=== PATIENT | male | born 1980 | race Caucasian/White ===

== ENCOUNTER 2021-11-05 03:18 | Outpatient (CLI) | payer OTHER, SELFPAY ==
[2021-11-05] MEDS: Gadoterate meglumine 20 ML VIAL IVP (08:04)
--- NOTE | 2021-11-05 09:00 | DI.MRI_ITS ---
Exam(s) MR IAC BRAIN WO/W EXAM: MR IAC BRAIN WO/W CLINICAL HISTORY: Asymmetric hearing loss,dizziness,tinnitus,r42,h93.19,h91.8x9 TECHNIQUE: MR examination of the brain was performed according to the usual protocol with additiona l multiplanar high-resolution pre and post contrast imaging the posterior fossa. Whole brain axial T 1 weighted imaging was also obtained post contrast. COMPARISON: No exams were available for comparison FINDINGS: The ventricular system is normal in appearance. There is no mass lesion or enhancing lesion in the b rain. No significant intracranial signal abnormality seen. Diffusion-weighted imaging shows no diffusion restriction to suggest cerebral infarction. Susceptibility weighted imaging shows no evidence of intracranial hemorrhage. The orbital and temporal bone structures appear intact. The pituitary appears intact. There is normal flow void in the [id number] vasculature. Imaging of the posterior fossa region shows no abnormality of the cerebellum or teresa. The internal a uditory canals and inner and middle ear structures appear normal. There is no mass lesion or enhanci ng lesion. IMPRESSION: Negative brain MRI with attention to the posterior fossa structures as described above. No mass lesi on or enhancing lesion. RADIATION DOSE DELIVERED: Total DLP
== END 2021-11-05 03:38 ==
LOC: DI 03:18
PROVIDERS: PCP Physician Assistant; Visit Provider Registered Nurse Maternal Newborn
DX: H90.3 Sensorineural hearing loss, bilateral; H93.12 Tinnitus, left ear; R42 Dizziness and giddiness
CPT/HCPCS: 70553